=== PATIENT | female | born 2000 | race Hispanic/Latino ===

== ENCOUNTER → 2024-12-02 09:15 | Outpatient (CLI) | payer OTHER, SELFPAY ==
--- NOTE | 2024-12-02 09:17 | DI.MRI.S_ITS ---
PROCEDURE: MR THORACIC SPINE WO CON INDICATIONS: Paresthesia of skin TECHNIQUE: Noncontrast sagittal T1 spine echo and T2 fast spin echo, sagittal STIR, and T2 fast spin echo through the thoracic spine. COMPARISON: None. FINDINGS: Image quality: Diagnostic, with note made of motion artifact. Alignment and Curvature: There is normal bony alignment. Bone Marrow: Marrow is of normal overall signal. No acute vertebral body compression fractures. Spinal Cord: Visualized spinal cord is normal in size and signal. Paraspinous Soft Tissues: No paravertebral masses. Miscellaneous: No focal disc pathology is seen. No significant neural foraminal or central canal narrowing can be seen. IMPRESSION: No imaging explanation is found for this patient's presenting symptoms. Dictated by: Nav Davis M.D. on 12/02/2024 at 17:39 Approved by: Nav Davis M.D. on 12/02/2024 at 17:40
== END ==
PROVIDERS: Referring Provider Student in an Organized Health Care Education/Training Program; Visit Provider Student in an Organized Health Care Education/Training Program
DX: R20.2 Paresthesia of skin (principal)
CPT/HCPCS: 72146